=== PATIENT | female | born 1970 | race Caucasian/White ===

== ENCOUNTER 2023-10-08 10:38 | Outpatient (OUT) | payer OTHER, SELFPAY ==
--- NOTE | 2023-10-08 10:45 | MM_ITS ---
Patient Name: NGUYỄN CHAIDEZ MR#: [id number] : 1970 Exam Date: 10/08/2023 Ordering Doctor: DR Joey Guzman . RADIOLOGY REPORT PROCEDURE: MM TOMOSYNTHESIS SCREENING BI COMPARISON: MG MAMM SCREEN KINGS W CAD, 08/02/2017. INDICATIONS: Screening Calculator Name NCI Breast Cancer Risk Assessment Tool 5 Year Breast Cancer Risk 1.50% Lifetime Breast Cancer Risk 11.80% Personal Breast Cancer No Personal Ovarian Cancer No Treatments None Family Cancers Grandmother-paternal with breast cancer at age ~64. LOCATION: [facility] BREAST COMPOSITION: Scattered areas fibroglandular density. FINDINGS: DIAGNOSTIC CATEGORY 1--NEGATIVE. NO CHANGE FROM COMPARISON ASSESSMENT. Scattered benign-appearing calcifications are present. RIGHT BREAST: No significant suspicious finding. LEFT BREAST: No significant suspicious finding. RECOMMENDATIONS: ROUTINE MAMMOGRAM AND CLINICAL EVALUATION IN 12 MONTHS. PLEASE NOTE: A NORMAL MAMMOGRAM DOES NOT EXCLUDE THE POSSIBILITY OF BREAST CANCER. A CLINICALLY SUSPICIOUS PALPABLE LUMP SHOULD BE BIOPSIED. Dictated by: Karl Egan MD on 10/08/2023 at 13:34 Approved by: Karl Egan MD on 10/08/2023 at 13:35
== END 2023-10-08 10:39 | disposition home or self-care (01) ==
LOC: MAMMO 10:39
PROVIDERS: PCP Family Medicine; Visit Provider Family Medicine
DX: Z12.31 Encounter for screening mammogram for malignant neoplasm of breast (principal); Z80.3 Family history of malignant neoplasm of breast
CPT/HCPCS: 77063; 77067

== ENCOUNTER 2024-02-23 08:28 | Outpatient (OUT) | payer OTHER, SELFPAY ==
--- OUTSIDE RECORDS SUMMARY | 2024-02-23 08:44 | XMS_ITS | CCD ---
Author Organization [facility] Care Team Providers Care Medical Education Coordinator Name Role Phone Sherlyn Kwon Admitting Unavailable Sherlyn Kwon Attending Unavailable HOEdilia ., DR ELENA Admitting Unavailable MIRYAM ., DR ELENA Attending Unavailable MIRYAM ., DR ELENA Primary Care Unavailable MIRYAM Wilkins, DR ELENA Consulting Unavailable Problems Problem Classification Problem Date Documented Da te Episodic/Chronic Diabetes mellitus without complication (4 sources) Other abnormal glucose; Translations: [OTHER ABNORMAL GLUCOSE] Onset: 02-04-2023 Episodic Disorders of lipid metabolism (1 source) Hyperlipidemia, unspecified; Translations: [HYPERLIPIDEMIA UNSPECIFIED] Onset: 02-12-2023 Chronic Malaise and fatigue (1 source) Other fatigue; Translations: [OTHER FATIGUE] Onset: 02-12-2023 Episodic Nutritional deficiencies (1 source) Vitamin D deficiency, unspecified; Translations: [VITAMIN D DEFICIENCY UNSPECIFIED] Onset: 02-12-2023 Chronic Other screening for suspected conditions (not mental disorders or infectious disease) (1 source) Encounter for screening for malignant neoplasm of rectum; Translations: [ENC SCREEN MALIG NEOPLASM RECTUM] Onset: 02-12-2023 Episodic Results Test Name Value Interpretation Reference Range Facility CBC AUTO DIFFon 02-04-2023 BASO # 0.1 103/ul Normal 0.0-0.1 [facility] Comment on above: Performed By: #### C BC #### [facility] [address] [address] [address] Jarrett Gillette Basophils/100 WBC (Bld) 1.0 % Normal 0.2-2.0 [facility] Comment on above: Performed By: #### C BC #### [facility] [address] [address] [address] aJrrett Gillette EO # 0.4 103/ul Normal 0.0-0.7 [facility] Comment on above: Performed By: #### C BC #### [facility] [address] [place] [address] Dr. Jarrett Gillette Eosinophils/100 WBC (Bld) 6.4 % Normal 0.9-7.0 [facility] Comment on above: Performed By: #### C BC #### [facility] [address] [place] [address] Dr. Jarrett Gillette Erythrocyte distribution width (RBC) [Ratio] 13.8 % Normal 11.0-15.0 [facility] Comment on above: Performed By: #### C BC #### [facility] [address] [place] [address] Dr. Jarrett Gillette Hematocrit (Bld) [Volume fraction] 38.5 % Normal 36.0-48.0 [facility] Comment on above: Performed By: #### C BC #### [facility] [address] [place] [address] Dr. Jarrett Gillette Hemoglobin (Bld) [Mass/Vol] 12.9 g/dL Normal 12.0-16.0 [facility] Comment on above: Performed By: #### C BC #### [facility] [address] [place] [address] Dr. Jarrett Gillette IG # 0.01 10e3/ul Normal 0.00-0.03 [facility] Comment on above: Performed By: #### C BC #### [facility] [address] [place] [address] Dr. Jarrett Gillette IG % 0.2 % Normal 0.0-0.5 [facility] Comment on above: Performed By: #### C BC #### [facility] [address] [place] [address] Dr. Jarrett Gillette LYMPH # 2.5 103/ul Normal 1.2-3.8 [facility] Comment on above: Performed By: #### C BC #### [facility] [address] [place] [address] Dr. Jarrett Gillette Lymphocytes/100 WBC (Bld) 42.8 % Normal 20.5-60.0 [facility] Comment on above: Performed By: #### C BC #### [facility] [address] [place] [address] Dr. Jarrett Gillette MANUAL DIFF REQ NO Normal [facility] Comment on above: Performed By: #### C BC #### [facility] [address] [place] [address] Dr. Jarrett Gillette MCH (RBC) [Entitic mass] 29.6 pg Normal 26.7-34.0 [facility] Comment on above: Performed By: #### C BC #### [facility] [address] [place] [address] Dr. Jarrett Gillette MCHC (RBC) [Mass/Vol] 33.5 g/dL Normal 29.9-35.2 [facility] Comment on above: Performed By: #### C BC #### [facility] [address] [place] [address] Dr. Jarrett Gillette MCV (RBC) [Entitic vol] 88.3 fL Normal 81.0-99.0 [facility] Comment on above: Performed By: #### C BC #### [facility] [address] [place] [address] Dr. Jarrett Gillette MONO # 0.6 103/ul Normal 0.3-0.8 [facility] Comment on above: Performed By: #### C BC #### [facility] [address] [place] [address] Dr. Jarrett Gillette Monocytes/100 WBC (Bld) 10.2 % Normal 1.7-12.0 [facility] Comment on above: Performed By: #### C BC #### [facility] [address] [place] [address] Dr. Jarrett Gillette NEUT # 2.3 103/ul Normal 1.4-6.5 [facility] Comment on above: Performed By: #### C BC #### [facility] [address] [place] [address] Dr. Jarrett Gillette Neutrophils/100 WBC (Bld) 39.4 % Critically low 43.0-75.0 [facility] Comment on above: Performed By: #### C BC #### [facility] [address] [address] [address] Jarrett Gillette Platelet mean volume (Bld) [Entitic vol] 9.9 fL Normal 9.5-13.5 [facility] Comment on above: Performed By: #### C BC #### [facility] [address] [address] [address] Jarrett Gillette PLT 312 103/ul Normal 150-450 [facility] Comment on above: Performed By: #### C BC #### [facility] [address] [place] [address] Dr. Jarrett Gillette RBC 4.36 106/ul Normal 4.20-5.40 [facility] Comment on above: Performed By: #### C BC #### [facility] [address] [place] [address] Dr. Jarrett Gillette WBC 5.8 103/ul Normal 4.0-11.0 [facility] Comment on above: Performed By: #### C BC #### [facility] [address] [place] [address] Dr. Jarrett Gillette FREE T3on 02-04-2023 FREE T3 3.70 pg/mlL Normal 2.18-3.98 [facility] Comment on above: Performed By: #### T 4, LIPID, FT3, TSH, CMP #### [facility] [address] [place] [address] Dr. Jarrett Gillette GLYCOHEMOGLOBIN A1Con 2022 ADA RECOMMENDATION SEE BELOW Normal [facility] Comment on above: Result Comment: ADA RECOMMENDED LIMIT 4.0 - 6.0 ADA THERAPEUTIC TARGET < 7.0 ACTION SUGGESTED > 7.0 Performed By: #### A 1C #### [facility] [address] [place] [address] Dr. Jarrett Gillette Glucose [Mass/Vol] 103 mg/dL Normal [facility] Comment on above: Performed By: #### A 1C #### [facility] [address] [place] [address] Dr. Jarrett Gillette HbA1c (Bld) [Mass fraction] 5.2 % Normal 4.5-6.2 [facility] Comment on above: Performed By: #### A 1C #### [facility] [address] [address] [address] Jarrett Gillette LIPID PROFILEon 02-04-2023 CHOL-HDL RATIO NORM SEE BELOW Normal [facility] Comment on above: Result Comment: 3.3 - 4.4 LOW RISK 4.4 - 7.1 AVERAGE RISK 7.1 - 11.0 MODERATE RISK >11.0 HIGH RISK Performed By: #### T 4, LIPID, FT3, TSH, CMP #### [facility] [address] [address] [address] Jarrett Gillette Cholesterol [Mass/Vol] 234 mg/dL Critically high <=200 [facility] Comment on above: Performed By: #### T 4, LIPID, FT3, TSH, CMP #### [facility] [address] [address] [address] Jarrett Gillette Cholesterol in HDL [Mass/Vol] 44 mg/dL Normal 40-60 [facility] Comment on above: Performed By: #### T 4, LIPID, FT3, TSH, CMP #### [facility] [address] [address] [address] Jarrett Gillette Cholesterol in LDL [Mass/Vol] 152.4 mg/dL Normal [facility] Comment on above: Performed By: #### T 4, LIPID, FT3, TSH, CMP #### [facility] [address] [address] [address] Jarrett Gillette Cholesterol.total/Cho lesterol in HDL [Mass ratio] 5.3 {ratio} Normal [facility] Comment on above: Performed By: #### T 4, LIPID, FT3, TSH, CMP #### [facility] [address] [address] [address] Jarrett Gillette HDL NORMAL > or = 60 mg/dl - LOW CARDIOVASCULAR RISK <40 mg/dl - HIGH CARDIOVASCULAR RISK Normal [facility] Comment on above: Performed By: #### T 4, LIPID, FT3, TSH, CMP #### [facility] [address] [address] [address] Jarrett Gillette LDL CALC NORMAL SEE BELOW Normal [facility] Comment on above: Result Comment: <100 mg/dl OPTIMAL 100 - 129 mg/dl NEAR OR ABOVE OPTIMAL 130 - 159 mg/dl BORDERLINE HIGH 160 - 189 mg/dl HIGH >190 mg/dl VERY HIGH Performed By: #### T 4, LIPID, FT3, TSH, CMP #### [facility] [address] [address] [address] Jarrett Gillette Triglyceride [Mass/Vol] 188 mg/dL Critically high <=150 [facility] Comment on above: Performed By: #### T 4, LIPID, FT3, TSH, CMP #### [facility] [address] [address] [address] Jarrett Gillette VLDL CALC 37.6 mg/dL Normal [facility] Comment on above: Performed By: #### T 4, LIPID, FT3, TSH, CMP #### [facility] [address] [place] [address] Dr. Jarrett Gillette PROF 14(COMP METB)on 023 Albumin [Mass/Vol] 3.6 g/dL Normal 3.4-5.0 [facility] Comment on above: Performed By: #### T 4, LIPID, FT3, TSH, CMP #### [facility] [address] [address] [address] Jarrett Gillette Albumin/Globulin [Mass ratio] 1.0 {ratio} Normal [facility] Comment on above: Performed By: #### T 4, LIPID, FT3, TSH, CMP #### [facility] [address] [address] [address] Jarrett Gillette ALP [Catalytic activity/Vol] 105 U/L Normal 46-116 [facility] Comment on above: Performed By: #### T 4, LIPID, FT3, TSH, CMP #### [facility] [address] [address] [address] Jarrett Gillette ALT [Catalytic activity/Vol] 37 U/L Normal 14-59 [facility] Comment on above: Performed By: #### T 4, LIPID, FT3, TSH, CMP #### [facility] [address] [address] [address] Jarrett Gillette Anion gap [Moles/Vol] 9.2 mmol/L Normal [facility] Comment on above: Performed By: #### T 4, LIPID, FT3, TSH, CMP #### [facility] [address] [place] [address] Dr. Jarrett Gillette AST [Catalytic activity/Vol] 17 U/L Normal 15-37 [facility] Comment on above: Performed By: #### T 4, LIPID, FT3, TSH, CMP #### [facility] [address] [address] [address] Jarrett Gillette Bilirubin [Mass/Vol] 0.3 mg/dL Normal 0.2-1.0 [facility] Comment on above: Performed By: #### T 4, LIPID, FT3, TSH, CMP #### [facility] [address] [place] [address] Dr. Jarrett Gillette Calcium [Mass/Vol] 9.4 mg/dL Normal 8.5-10.1 [facility] Comment on above: Performed By: #### T 4, LIPID, FT3, TSH, CMP #### [facility] [address] [address] [address] Jarrett Gillette Chloride [Moles/Vol] 104 mmol/L Normal 98-107 [facility] Comment on above: Performed By: #### T 4, LIPID, FT3, TSH, CMP #### [facility] [address] [address] [address] Jarrett Gillette CO2 [Moles/Vol] 30.6 mmol/L Normal 21.0-32.0 [facility] Comment on above: Performed By: #### T 4, LIPID, FT3, TSH, CMP #### [facility] [address] [place] [address] Dr. Jarrett Gillette Creatinine [Mass/Vol] 0.70 mg/dL Normal 0.55-1.02 [facility] Comment on above: Performed By: #### T 4, LIPID, FT3, TSH, CMP #### [facility] [address] [place] [address] Dr. Jarrett Gillette EGFR-AF CITIZEN OF [place] >60 Normal >=60 [facility] Comment on above: Performed By: #### T 4, LIPID, FT3, TSH, CMP #### [facility] [address] [place] [address] Dr. Jarrett Gillette EGFR-NON AF CITIZEN OF [place] >60 Normal >=60 [facility] Comment on above: Performed By: #### T 4, LIPID, FT3, TSH, CMP #### [facility] [address] [place] [address] Dr. Jarrett Gillette Globulin (S) [Mass/Vol] 3.7 g/dL Normal [facility] Comment on above: Performed By: #### T 4, LIPID, FT3, TSH, CMP #### [facility] [address] [place] [address] Dr. Jarrett Gillette Glucose [Mass/Vol] 100 mg/dL Normal 74-106 [facility] Comment on above: Performed By: #### T 4, LIPID, FT3, TSH, CMP #### [facility] [address] [place] [address] Dr. Jarrett Gillette Potassium [Moles/Vol] 3.8 mmol/L Normal 3.5-5.1 [facility] Comment on above: Performed By: #### T 4, LIPID, FT3, TSH, CMP #### [facility] [address] [place] [address] Dr. Jarrett Gillette Protein [Mass/Vol] 7.3 g/dL Normal 6.4-8.2 [facility] Comment on above: Performed By: #### T 4, LIPID, FT3, TSH, CMP #### [facility] [address] [place] [address] Dr. Jarrett Gillette Sodium [Moles/Vol] 140 mmol/L Normal 136-145 [facility] Comment on above: Performed By: #### T 4, LIPID, FT3, TSH, CMP #### [facility] [address] [place] [address] Dr. Jarrett Gillette Urea nitrogen [Mass/Vol] 16.0 mg/dL Normal 7.0-18.0 [facility] Comment on above: Performed By: #### T 4, LIPID, FT3, TSH, CMP #### [facility] [address] [address] [address] Jarrett Gillette Urea nitrogen/Creatinine [Mass ratio] 22.9 mg/mg Normal [facility] Comment on above: Performed By: #### T 4, LIPID, FT3, TSH, CMP #### [facility] [address] [address] [address] Jarrett Gillette T4on 02-04-2023 T4 [Mass/Vol] 7.50 ug/dL Normal 4.80-13.90 [facility] Comment on above: Performed By: #### T 4, LIPID, FT3, TSH, CMP #### [facility] [address] [place] [address] Dr. Jarrett Gillette TSHon 02-04-2023 TSH 3.870 uIU/mL Critically high 0.358-3.740 [facility] Comment on above: Performed By: #### T 4, LIPID, FT3, TSH, CMP #### [facility] [address] [place] [address] Dr. Jarrett Gillette VITAMIN D 25 OHon 02-04-2023 VIT D 25-OH 67.2 ng/mL Normal [facility] Comment on above: Performed By: #### V ITAD #### [facility] [address] [place] [address] Dr. Jarrett Gillette VIT D RANGES SEE BELOW Normal [facility] Comment on above: Result Comment: <20 ng/mL Vit D deficient 20 - <30 ng/mL Vit D insufficient 30 - 100 ng/mL Vit D sufficient >100 ng/mL Potential Toxicity Performed By: #### V ITAD #### [facility] [address] [place] [address] Dr. Jarrett Gillette XR chest 2V*on 01-13-2019 XR chest 2V* [facility] [place] [address] XRay Report Signed Patient: Jennifer Ge MR#: [id number] : 1970 Acct:[id number] Age/Sex: 48 / F ADM Date: 01/13/19 [facility]: [facility]: [facility] Attending Dr: Sherlyn BURRIS Ordering Provider: Sherlyn Kwon Date of Service: 01/13/19 XR/XR chest 2V*: R05 Copies to: Sherlyn Kwon [place] [facility] chest[facility]-view HISTORY:Nonproductiv e cough. Shortness of breath for 2 weeks. COMPARISON:None FINDINGS: The cardiac, mediastinal and hilar silhouettes are within normal limits. No acute lung process, pleural effusion or pneumothorax identified. Bony structures are intact. XR/XR chest 2V* IMPRESSION: No acute process. Impression dictated by: Ignacio Lopez M.D.01/13/2019 11:00 AM [facility] Transcribed By: [facility] 01/13/19 1100 Dictated By: Ignacio Lopez DO 01/13/19 1056 Signed By: 01/13/19 1100 Normal [facility] Encounters Encounter Date Encounter Type Care Provider Facility Start: 02-04-2023 End: 02-05-[address] KASSY WITT . Facility: Start: 01-13-2019 End: 01-13-2019 Patient encounter procedure Sherlyn Kwon Facility:[facility] Payers Date Payer Category Payer Self-pay 2019 Unknown [id number] 1970 Unknown [id number] 1958 Unknown [id number] Unknown [id number] Summary Purpose Family History No Family History Records FoundNo Family History Records Found Advance Directives No Advanced Directives Records FoundNo Advanced Directives Records Found Additional Source Comments INFORMATION SOURCE (unrecogn ized section and content) DATE CREATED AUTHOR 01/15/2019 [facility] DATE CREATED AUTHOR AUTHOR'S ORGANIZ ATION 02/16/2023 [facility] FOR RECORDS PERTAINING TO PATIENTS WHO ARE OR HAVE BEEN ENROLLED IN A CHEMICAL DEPENDENCY/SUBSTANCEABUSE PROGRAM, SOME INFORMATION MAY BE OMITTED. This clinical summary was aggregated from multiple sources. Caution should be exercised in using it in the provision of clinical care. This summary normalizes information from multiple sources, and as a consequence, information in this document may materially change the coding, format and clinical context of patient data. In addition, data may be omitted in some cases. CLINICAL DECISIONS SHOULD BE BASED ON THE PRIMARY CLINICAL RECORDS. [facility] [employer] [facility]. provides no warranty or guarantee of the accuracy or completeness of information in this document.
[2024-02-23 09:14] LABS: Estimated Average Glucose 114 mg/dL; Glycohemoglobin A1C 5.6 % (4.5-6.2)
[2024-02-23 09:25] LABS: Basophils Absolute Auto 0.1 10^3/uL (0.0-0.1); Eosinophils Absolute Auto 0.4 10^3/uL (0.0-0.7); Hematocrit 40.1 % (36.0-48.0); Hemoglobin 13.2 g/dL (12.0-16.0); Immature Granulocytes Abs Auto 0.01 10^3/uL (0.00-0.03); Immature Granulocytes Pct Auto 0.2 % (0.0-0.5); Lymphocytes Absolute Auto 2.2 10^3/uL (1.2-3.8); Lymphocytes Percent Auto 37.7 % (20.5-60.0); Mean Corpuscular HGB Conc 32.9 g/dL (29.9-35.2); Mean Corpuscular Hemoglobin 28.9 pg (26.7-34.0); Mean Corpuscular Volume 87.9 fL (81.0-99.0); Mean Platelet Volume 9.9 fL (9.5-13.5); Monocytes Absolute Auto 0.5 10^3/uL (0.3-0.8); Monocytes Percent Auto 8.7 % (1.7-12.0); Neutrophils Absolute Auto 2.7 10^3/uL (1.4-6.5); Neutrophils Percent Auto 46.4 % (43.0-75.0); Platelet Count 361 10^3/uL (150-450); Red Blood Count 4.56 10^6/uL (4.20-5.40); Red Cell Distribution Width 14.1 % (11.0-15.0); White Blood Count 5.9 10^3/uL (4.0-11.0)
[2024-02-23 09:29] LABS: Alanine Aminotransferase 37 U/L (14-59); Albumin Globulin Ratio 0.9; Albumin Level 3.5 g/dL (3.4-5.0); Alkaline Phosphatase 93 U/L (46-116); Anion Gap 12.4; Aspartate Amino Transferase 22 U/L (15-37); BUN Creatinine Ratio 20.9; Bilirubin Total 0.6 mg/dL (0.2-1.0); Calcium 9.6 mg/dL (8.5-10.1); Carbon Dioxide 30.5 mmol/L (21.0-32.0); Chloride 102 mmol/L (98-107); Chol HDL Ratio 5.3; Cholesterol 256 mg/dL (<=200); Estimated GFR (African America >60 (>=60); Estimated GFR (Non-African Ame >60 (>=60); Free T3 3.77 pg/mL (2.18-3.98); Glucose 96 mg/dL (74-106); HDL Cholesterol 48 mg/dL (40-60); Potassium 3.9 mmol/L (3.5-5.1); Sodium 141 mmol/L (136-145); Thyroid Stimulating Hormone 3.568 uIU/mL (0.358-3.740); Total Protein 7.5 g/dL (6.4-8.2); Triglycerides 230 mg/dL (<=150)
[2024-02-23 10:22] LABS: Free T4 0.81 ng/dL (0.76-1.46)
== END 2024-02-23 08:29 | disposition home or self-care (01) ==
LOC: LAB 08:29
PROVIDERS: PCP Family Medicine; Visit Provider Family Medicine
DX: Z00.00 Encounter for general adult medical examination without abnormal findings (principal)
CPT/HCPCS: 36415; 80053; 80061; 82306; 83036; 84439; 84443; 84481; 85025

== ENCOUNTER 2024-12-13 08:18 | Outpatient (OUT) | payer OTHER, SELFPAY ==
--- OUTSIDE RECORDS SUMMARY | 2024-12-13 08:23 | XMS_ITS | CCD ---
Author Organization [facility] Care Team Providers Care Solar Sales Manager Name Role Phone Sherlyn Kwon Admitting Unavailable Sherlyn Kwon Attending Unavailable HOY ., DR ELENA Admitting Unavailable MIRYAM ., [...] # 0.1 103/ul Normal 0.0-0.1 [facility] [place] Comment on above: Performed By: #### C BC #### [facility] [address] [address] [address] Jarrett Gillette Basophils/100 WBC (Bld) 1.0 % Normal 0.2-2.0 [facility] [place] Comment on above: Performed By: #### C BC #### [facility] [address] [address] [address] Jarrett Gillette EO # 0.4 103/ul Normal 0.0-0.7 [facility] [place] Comment on above: Performed By: #### C BC #### [facility] [address] [place] [address] Dr. Jarrett Gillette Eosinophils/100 WBC (Bld) 6.4 % Normal 0.9-7.0 [facility] [place] Comment on above: Performed By: #### C BC #### [facility] [address] [place] [address] Dr. Jarrett Gillette Erythrocyte distribution width (RBC) [Ratio] 13.8 % Normal 11.0-15.0 [facility] [place] Comment on above: Performed By: #### C BC #### [facility] [address] [place] [address] Dr. Jarrett Gillette Hematocrit (Bld) [Volume fraction] 38.5 % Normal 36.0-48.0 [facility] [place] Comment on above: Performed By: #### C BC #### [facility] [address] [place] [address] Dr. Jarrett Gillette Hemoglobin (Bld) [Mass/Vol] 12.9 g/dL Normal 12.0-16.0 [facility] [place] Comment on above: Performed By: #### C BC #### [facility] [address] [place] [address] Dr. Jarrett Gillette IG # 0.01 10e3/ul Normal 0.00-0.03 [facility] [place] Comment on above: Performed By: #### C BC #### [facility] [address] [place] [address] Dr. Jarrett Gillette IG % 0.2 % Normal 0.0-0.5 [facility] Comment on above: Performed By: #### C BC #### [facility] [address] [place] [address] Dr. Jarrett Gillette LYMPH # 2.5 103/ul Normal 1.2-3.8 [facility] Comment on above: Performed By: #### C BC #### [facility] [address] [place] [address] Dr. Jarrett Gillette Lymphocytes/100 WBC (Bld) 42.8 % Normal 20.5-60.0 [facility] [place] Comment on above: Performed By: #### C BC #### [facility] [address] [place] [address] Dr. Jarrett Gillette MANUAL DIFF REQ NO Normal [facility] Comment on above: Performed By: #### C BC #### [facility] [address] [place] [address] Dr. Jarrett Gillette MCH (RBC) [Entitic mass] 29.6 pg Normal 26.7-34.0 [facility] [place] Comment on above: Performed By: #### C BC #### [facility] [address] [place] [address] Dr. Jarrett Gillette MCHC (RBC) [Mass/Vol] 33.5 g/dL Normal 29.9-35.2 [facility] [place] Comment on above: Performed By: #### C BC #### [facility] [address] [place] [address] Dr. Jarrett Gillette MCV (RBC) [Entitic vol] 88.3 fL Normal 81.0-99.0 [facility] [place] Comment on above: Performed By: #### C BC #### [facility] [address] [place] [address] Dr. Jarrett Gillette MONO # 0.6 103/ul Normal 0.3-0.8 [facility] [place] Comment on above: Performed By: #### C BC #### [facility] [address] [place] [address] Dr. Jarrett Gillette Monocytes/100 WBC (Bld) 10.2 % Normal 1.7-12.0 [facility] Comment on above: Performed By: #### C BC #### [facility] [address] [place] [address] Dr. Jarrett Gillette NEUT # 2.3 103/ul Normal 1.4-6.5 [facility] Comment on above: Performed By: #### C BC #### [facility] [address] [place] [address] Dr. Jarrett Gillette Neutrophils/100 WBC (Bld) 39.4 % Critically low 43.0-75.0 [facility] Comment on above: Performed By: #### C BC #### [facility] [address] [place] [address] Dr. Jarrett Gillette Platelet mean volume (Bld) [Entitic vol] 9.9 fL Normal 9.5-13.5 [facility] [place] Comment on above: Performed By: #### C BC #### [facility] [address] [place] [address] Dr. Jarrett Gillette PLT 312 103/ul Normal 150-450 [facility] Comment on above: Performed By: #### C BC #### [facility] [address] [place] [address] Dr. Jarrett Gillette RBC 4.36 106/ul Normal 4.20-5.40 [facility] [place] Comment on above: Performed By: #### C BC #### [facility] [address] [place] [address] Dr. Jarrett Gillette WBC 5.8 103/ul Normal 4.0-11.0 [facility] [place] Comment on above: Performed By: #### C BC #### [facility] [address] [place] [address] Dr. Jarrett Gillette FREE T3on 02-04-2023 FREE T3 3.70 pg/mlL Normal 2.18-3.98 [facility] [place] Comment on above: Performed By: #### T 4, LIPID, FT3, TSH, CMP #### [facility] [address] [place] [address] Dr. Jarrett Gillette GLYCOHEMOGLOBIN A1Con 2022 ADA RECOMMENDATION SEE BELOW Normal [facility] Comment on above: Result Comment: ADA RECOMMENDED LIMIT 4.0 - 6.0 ADA THERAPEUTIC TARGET < 7.0 ACTION SUGGESTED > 7.0 Performed By: #### A 1C #### [facility] [address] [place] [address] Dr. Jarrett Gillette Glucose [Mass/Vol] 103 mg/dL Normal [facility] Comment on above: Performed By: #### A 1C #### [facility] [address] [place] [address] Dr. Jarrett Gillette HbA1c (Bld) [Mass fraction] 5.2 % Normal 4.5-6.2 [facility] [place] Comment on above: Performed By: #### A 1C #### [facility] [address] [address] [address] Jarrett Gillette LIPID PROFILEon 02-04-2023 CHOL-HDL RATIO NORM SEE BELOW Normal [facility] Comment on above: Result Comment: 3.3 - 4.4 LOW RISK 4.4 - 7.1 AVERAGE RISK 7.1 - 11.0 MODERATE RISK >11.0 HIGH RISK Performed By: #### T 4, LIPID, FT3, TSH, CMP #### [facility] [address] [address] [address] Jarrett Gillette Cholesterol [Mass/Vol] 234 mg/dL Critically high <=200 [facility] [place] Comment on above: Performed By: #### T 4, LIPID, FT3, TSH, CMP #### [facility] [address] [place] [address] Dr. Jarrett Gillette Cholesterol in HDL [Mass/Vol] 44 mg/dL Normal 40-60 [facility] [place] Comment on above: Performed By: #### T 4, LIPID, FT3, TSH, CMP #### [facility] [address] [address] [address] Jarrett Gillette Cholesterol in LDL [Mass/Vol] 152.4 mg/dL Normal [facility] [place] Comment on above: Performed By: #### T 4, LIPID, FT3, TSH, CMP #### [facility] [address] [address] [address] Jarrett Gillette Cholesterol.total/Cho lesterol in HDL [Mass ratio] 5.3 {ratio} Normal [facility] [place] Comment on above: Performed By: #### T 4, LIPID, FT3, TSH, CMP #### [facility] [address] [address] [address] Jarrett Gillette HDL NORMAL > or = 60 mg/dl - LOW CARDIOVASCULAR RISK <40 mg/dl - HIGH CARDIOVASCULAR RISK Normal [facility] [place] Comment on above: Performed By: #### T 4, LIPID, FT3, TSH, CMP #### [facility] [address] [place] [address] Dr. Jarrett Gillette LDL CALC NORMAL SEE BELOW Normal [facility] Comment on above: Result Comment: <100 mg/dl OPTIMAL 100 - 129 mg/dl NEAR OR ABOVE OPTIMAL 130 - 159 mg/dl BORDERLINE HIGH 160 - 189 mg/dl HIGH >190 mg/dl VERY HIGH Performed By: #### T 4, LIPID, FT3, TSH, CMP #### [facility] [address] [address] [address] Jarrett Gillette Triglyceride [Mass/Vol] 188 mg/dL Critically high <=150 [facility] [place] Comment on above: Performed By: #### T 4, LIPID, FT3, TSH, CMP #### [facility] [address] [address] [address] Jarrett Gillette VLDL CALC 37.6 mg/dL Normal [facility] [place] Comment on above: Performed By: #### T 4, LIPID, FT3, TSH, CMP #### [facility] [address] [place] [address] Dr. Jarrett Gillette PROF 14(COMP METB)on 023 Albumin [Mass/Vol] 3.6 g/dL Normal 3.4-5.0 [facility] Comment on above: Performed By: #### T 4, LIPID, FT3, TSH, CMP #### [facility] [address] [address] [address] Jarrett Gillette Albumin/Globulin [Mass ratio] 1.0 {ratio} Normal [facility] [place] Comment on above: Performed By: #### T 4, LIPID, FT3, TSH, CMP #### [facility] [address] [address] [address] Jarrett Gillette ALP [Catalytic activity/Vol] 105 U/L Normal 46-116 [facility] Comment on above: Performed By: #### T 4, LIPID, FT3, TSH, CMP #### [facility] [address] [address] [address] Jarrett Gillette ALT [Catalytic activity/Vol] 37 U/L Normal 14-59 [facility] [place] Comment on above: Performed By: #### T 4, LIPID, FT3, TSH, CMP #### [facility] [address] [place] [address] Dr. Jarrett Gillette Anion gap [Moles/Vol] 9.2 mmol/L Normal [facility] [place] Comment on above: Performed By: #### T 4, LIPID, FT3, TSH, CMP #### [facility] [address] [place] [address] Dr. Jarrett Gillette AST [Catalytic activity/Vol] 17 U/L Normal 15-37 [facility] [place] Comment on above: Performed By: #### T 4, LIPID, FT3, TSH, CMP #### [facility] [address] [place] [address] Dr. Jarrett Gillette Bilirubin [Mass/Vol] 0.3 mg/dL Normal 0.2-1.0 [facility] [place] Comment on above: Performed By: #### T 4, LIPID, FT3, TSH, CMP #### [facility] [address] [place] [address] Dr. Jarrett Gillette Calcium [Mass/Vol] 9.4 mg/dL Normal 8.5-10.1 [facility] Comment on above: Performed By: #### T 4, LIPID, FT3, TSH, CMP #### [facility] [address] [place] [address] Dr. Jarrett Gillette Chloride [Moles/Vol] 104 mmol/L Normal 98-107 [facility] Comment on above: Performed By: #### T 4, LIPID, FT3, TSH, CMP #### [facility] [address] [place] [address] Dr. Jarrett Gillette CO2 [Moles/Vol] 30.6 mmol/L Normal 21.0-32.[address] [facility] Comment on above: Performed By: #### T 4, LIPID, FT3, TSH, CMP #### [facility] [address] [place] [address] Dr. Jarrett Gillette Creatinine [Mass/Vol] 0.70 mg/dL Normal 0.55-1.02 [facility] Comment on above: Performed By: #### T 4, LIPID, FT3, TSH, CMP #### [facility] [address] [place] [address] Dr. Jarrett Gillette EGFR-AF BENINESE >60 Normal >=[address] [facility] Comment on above: Performed By: #### T 4, LIPID, FT3, TSH, CMP #### [facility] [address] [address] [address] Jarrett Gillette EGFR-NON AF BENINESE >60 Normal >=60 [facility] Comment on above: Performed By: #### T 4, LIPID, FT3, TSH, CMP #### [facility] [address] [address] [address] Jarrett Gillette Globulin (S) [Mass/Vol] 3.7 g/dL Normal [facility] Comment on above: Performed By: #### T 4, LIPID, FT3, TSH, CMP #### [facility] [address] [place] [address] Dr. Jarrett Gillette Glucose [Mass/Vol] 100 mg/dL Normal 74-106 [facility] Comment on above: Performed By: #### T 4, LIPID, FT3, TSH, CMP #### [facility] [address] [place] [address] Dr. Jarrett Gillette Potassium [Moles/Vol] 3.8 mmol/L Normal 3.5-5.1 [facility] Comment on above: Performed By: #### T 4, LIPID, FT3, TSH, CMP #### [facility] [address] [place] [address] Dr. Jarrett Gillette Protein [Mass/Vol] 7.3 g/dL Normal 6.4-8.2 [facility] Comment on above: Performed By: #### T 4, LIPID, FT3, TSH, CMP #### [facility] [address] [place] [address] Dr. Jarrett Gillette Sodium [Moles/Vol] 140 mmol/L Normal 136-145 [facility] Comment on above: Performed By: #### T 4, LIPID, FT3, TSH, CMP #### [facility] [address] [place] [address] Dr. Jarrett Gillette Urea nitrogen [Mass/Vol] 16.0 mg/dL Normal 7.0-18.0 [facility] Comment on above: Performed By: #### T 4, LIPID, FT3, TSH, CMP #### [facility] [address] [address] [address] Jarrett Gillette Urea nitrogen/Creatinine [Mass ratio] 22.9 mg/mg Normal [facility] Comment on above: Performed By: #### T 4, LIPID, FT3, TSH, CMP #### [facility] [address] [address] [address] Jarrett Gillette T4on 02-04-2023 T4 [Mass/Vol] 7.50 ug/dL Normal 4.80-13.90 [facility] Comment on above: Performed By: #### T 4, LIPID, FT3, TSH, CMP #### [facility] [address] [place] [address] Dr. Jarrett Gillette TSHon 02-04-2023 TSH 3.870 uIU/mL Critically high 0.358-3.740 [facility] Comment on above: Performed By: #### T 4, LIPID, FT3, TSH, CMP #### [facility] [address] [address] [address] Jarrett Gillette VITAMIN D 25 OHon 02-04-2023 VIT D 25-OH 67.2 ng/mL Normal [facility] Comment on above: Performed By: #### V ITAD #### [facility] [address] [place] [address] Dr. Jarrett Gillette VIT D RANGES SEE BELOW Normal [facility] Comment on above: Result Comment: <20 ng/mL Vit D deficient 20 - <30 ng/mL Vit D insufficient 30 - 100 ng/mL Vit D sufficient >100 ng/mL Potential Toxicity Performed By: #### V ITAD #### [facility] [address] [place] [address] Dr. Jarrett Gillette XR chest 2V*on 01-13-2019 XR chest 2V* [facility] [place] [address] XRay Report Signed Patient: Jennifer Ge MR#: [id number] : 1970 Acct:[id number] Age/Sex: 48 / F ADM Date: 01/13/19 Loc: XDUCLY Room: Type: [facility] Attending Dr: Sherlyn BURRIS Ordering Provider: [...] Ignacio Lopez M.D.01/13/2019 11:00 AM [facility] Transcribed By: JARED 01/13/19 1100 Dictated By: Ignacio Lopez DO 01/13/19 1056 Signed By: 01/13/19 1100 Normal [facility] Encounters Encounter Date Encounter Type Care Provider Facility Start: 02-04-2023 End: 02-05-[address] KASSY WITT . Facility: Start: 01-13-2019 End: 01-13-2019 Patient encounter procedure Sherlyn Kwon Facility:[facility] Payers Date Payer Category Payer Self-pay 2019 Unknown [id number] 1970 Unknown [id number] 1958 Unknown [id number] Unknown [id number] Summary Purpose Family History No Family History Records FoundNo Family History Records Found Advance Directives No Advanced Directives Records FoundNo Advanced Directives Records Found Additional Source Comments INFORMATION SOURCE (unrecogn ized section and content) DATE CREATED AUTHOR 01/15/2019 [facility] DATE CREATED AUTHOR AUTHOR'S ORGANIZ ATION 02/16/2023 [facility] FOR RECORDS PERTAINING TO PATIENTS [...] BE BASED ON THE PRIMARY CLINICAL RECORDS. [facility], [facility]. provides no warranty or guarantee of the accuracy or completeness of information in this document.
--- NOTE | 2024-12-13 08:55 | MM_ITS ---
Patient Name: NGUYỄN CHAIDEZ MR#: [id number] : 1970 Exam Date: 12/13/2024 Ordering Doctor: DR Jeoy Guzman . RADIOLOGY REPORT PROCEDURE: MM TOMOSYNTHESIS SCREENING BI COMPARISON: MM TOMOSYNTHESIS SCREENING BI, 10/08/2023. MG MAMM SCREEN KINGS W CAD, 08/02/2017. INDICATIONS: Screening Calculator Name NCI Breast Cancer Risk Assessment Tool 5 Year Breast Cancer Risk 1.50% Lifetime Breast Cancer Risk 11.60% Personal Breast Cancer No Personal Ovarian Cancer No Treatments None Family Cancers Grandfather-paternal with lung cancer at age 69; Father with sarcoma cancer at age 73; Grandmother-paternal with breast cancer at age ~64. LOCATION: [facility] BREAST COMPOSITION: There are scattered areas of fibroglandular density. FINDINGS: DIAGNOSTIC CATEGORY 1--NEGATIVE. RIGHT BREAST: No significant suspicious finding. No significant change has occurred. LEFT BREAST: No significant suspicious finding. No significant change has occurred. RECOMMENDATIONS: ROUTINE MAMMOGRAM AND CLINICAL EVALUATION IN 12 MONTHS. PLEASE NOTE: A NORMAL MAMMOGRAM DOES NOT EXCLUDE THE POSSIBILITY OF BREAST CANCER. A CLINICALLY SUSPICIOUS PALPABLE LUMP SHOULD BE BIOPSIED. Dictated by: Pablo Murphy M.D. on 12/15/2024 at 10:53 Approved by: Pablo Murphy M.D. on 12/15/2024 at 10:55
== END 2024-12-13 08:19 | disposition home or self-care (01) ==
LOC: MAMMO 08:18
PROVIDERS: PCP Family Medicine; Visit Provider Family Medicine
DX: Z12.31 Encounter for screening mammogram for malignant neoplasm of breast (principal); Z80.1 Family history of malignant neoplasm of trachea, bronchus and lung; Z80.3 Family history of malignant neoplasm of breast; Z80.8 Family history of malignant neoplasm of other organs or systems
CPT/HCPCS: 77063; 77067

== ENCOUNTER 2025-09-11 08:42 | Outpatient (OUT) | payer OTHER, SELFPAY ==
[2025-09-11 09:36] LABS: Hematocrit 40.4 % (36.0-48.0); Hemoglobin 13.6 g/dL (12.0-16.0); Immature Granulocytes Abs Auto 0.01 10^3/uL (0.00-0.03); Immature Granulocytes Pct Auto 0.2 % (0.0-0.5); Lymphocytes Absolute Auto 2.0 10^3/uL (1.2-3.8); Mean Corpuscular HGB Conc 33.7 g/dL (29.9-35.2); Mean Corpuscular Hemoglobin 29.7 pg (26.7-34.0); Mean Corpuscular Volume 88.2 fL (81.0-99.0); Platelet Count 384 10^3/uL (150-450); Red Blood Count 4.58 10^6/uL (4.20-5.40); White Blood Count 6.1 10^3/uL (4.0-11.0)
[2025-09-11 10:01] LABS: Iron 75.0 ug/dL (50.0-170.0)
[2025-09-11 10:19] LABS: Alanine Aminotransferase 35 U/L (14-59); Albumin Globulin Ratio 0.9; Albumin Level 3.4 g/dL (3.4-5.0); Alkaline Phosphatase 98 U/L (46-116); Anion Gap 12.8; Aspartate Amino Transferase 17 U/L (15-37); Blood Urea Nitrogen 14.0 mg/dL (7.0-18.0); Calcium 9.5 mg/dL (8.5-10.1); Carbon Dioxide 29.2 mmol/L (21.0-32.0); Chloride 102 mmol/L (98-107); Cholesterol 256 mg/dL (<=200); Estimated GFR (African America >60 (>=60 mL/min/1.73m^2); Estimated GFR (Non-African Ame >60 (>=60 mL/min/1.73m^2); Free T3 3.63 pg/mL (2.18-3.98); Globulin 3.9 g/dL; Glucose 99 mg/dL (74-106); HDL Cholesterol 38 mg/dL (40-60); Potassium 4.0 mmol/L (3.5-5.1); Sodium 140 mmol/L (136-145); Thyroid Stimulating Hormone 6.503 uIU/mL (0.358-3.740); Total Protein 7.3 g/dL (6.4-8.2); Triglycerides 252 mg/dL (<=150); VLDL CHOLESTEROL 50.4 mg/dL
== END 2025-09-11 08:43 | disposition home or self-care (01) ==
LOC: LAB 08:46
PROVIDERS: PCP Family Medicine; Visit Provider Family Medicine
DX: Z00.00 Encounter for general adult medical examination without abnormal findings (principal)
CPT/HCPCS: 36415; 80053; 80061; 83036; 83540; 84436; 84443; 84481; 85025